=== PATIENT | male | born 1970 | race Caucasian/White ===

== ENCOUNTER 2021-10-21 17:49 | Emergency (ER) | payer OTHER ==
[~2021-10-21] VITALS: Ht 180.3 cm; Wt 120.7 kg
[2021-10-21 18:44] LABS: BASO # 0.1 x10^3/uL (0.0-0.2); BASO % 1 % (0-3); EOS # 0.3 x10^3/uL (0.0-0.7); EOS % 3 % (0-3); HEMATOCRIT 44.9 % (39.0-53.0); LYMPH # 3.4 x10^3/uL (1.0-4.8); LYMPH % 30 % (24-48); MEAN CORPUSCULAR HEMOGLOBIN 30 pg (25-35); MEAN CORPUSCULAR HGB CONC 33 g/dL (31-37); MEAN CORPUSCULAR VOLUME 88 fL (79-100); MONO % 9 % (0-9); NEUT # 6.6 x10^3/uL (1.8-7.7); NEUT % 58 % (31-73); PLATELET COUNT 345 x10^3/uL (140-400); RED BLOOD COUNT 5.09 x10^6/uL (4.30-5.70); RED CELL DISTRIBUTION WIDTH 12.6 % (11.5-14.5); WHITE BLOOD COUNT 11.4 x10^3/uL (4.0-11.0)
[2021-10-21 18:52] LABS: CALCIUM 8.7 mg/dL (8.5-10.1); CREATININE 1.1 mg/dL (0.7-1.3); POTASSIUM 4.4 mmol/L (3.5-5.1)
[2021-10-21] MEDS: ONDANSETRON PF 4 MG/2 ML VIAL. IVP ONE (18:52)
[2021-10-21] MEDS: IV NORMAL SALINE 1000ML BAG 1,000 ML IV ONE (18:53)
[2021-10-21 18:54] VITALS: BP 123/84
--- NOTE | 2021-10-21 18:58 | PHYS DOC ---
Past Medical History Past Medical History: Diabetes-Type II Additional Past Surgical Histo: Left ankle repair Smoking Status: Never Smoker Alcohol Use: None Drug Use: None General Adult EDM: Chief Complaint: CHEST PAIN HPI: HPI: 51-year-old male presents with a CC of chest pain x 1 day. Pt states that the pain is localized around his left chest and states that it "feels like a pulled muscle" nothing makes it better, movement makes it worse, denies associated symptoms, denies radiation. pain /. Review of Systems: Review of Systems: Constitutional: Denies fever or chills Eyes: Denies redness or eye pain HENT: Denies nasal congestion or sore throat Respiratory: Denies cough or shortness of breath Cardiovascular: patient complains of chest pain but denies palpitations. GI: reports nausea, denies vomiting, constipation or diarrhea : Denies dysuria or hematuria Musculoskeletal: Denies back pain or joint pain Integument: Denies rash or skin lesions Neurologic: Reports blurred vision but denies headache, focal weakness or senso ry changes Complete systems were reviewed and found to be within normal limits, except as documented in this note. Heart Score: C/O Chest Pain: Yes HEART Score for Chest Pain: HEART Score for Chest Pain Response (Comments) Value History Slighlty/Non-Suspicious 0 ECG Normal 0 Age >45 - < 65 1 Risk Factors 1 or 2 Risk Factors 1 Troponin < Normal Limit 0 Total 2 Risk Factors: Risk Factors: DM, Current or recent (<one month) smoker, HTN, HLP, family history of CAD, obesity. Risk Scores: Score 0 - 3: 2.5% MACE over next 6 weeks - Discharge Home Score 4 - 6: 20.3% MACE over next 6 weeks - Admit for Clinical Observation Score 7 - 10: 72.7% MACE over next 6 weeks - Early Invasive Strategies Family History: Family History: No pertinent family history Current Medications: Current Medications Medications (Trade) Dose Ordered Sig/Bianka Start Time Stop Time Status Last Admin Dose Admin Ondansetron HCl (Zofran) 4 mg 1X ONCE 10/21/21 18:30 10/21/21 18:31 DC Sodium Chloride 1,000 ml @ 1,000 mls/hr 1X ONCE 10/21/21 18:30 10/21/21 19:29 Allergies: Allergies: Allergies Coded Allergies Type Severity Reaction Last Updated Verified Penicillins Allergy Unknown 10/21/21 Yes Physical Exam: PE: Constitutional: Well developed, well nourished, no acute distress, non-toxic appearance HENT: Normocephalic, atraumatic Eyes: PERRL, EOMI, conjunctiva normal, no discharge Neck: Normal range of motion, no tenderness, supple Cardiovascular: HRRR no murmurs, no palpitations Lungs & Thorax: No respiratory distress, equal chest rise and fall, lungs CTAB Abdomen: Soft, no tenderness Skin: Warm, dry, no erythema, no rash Back: No tenderness, no CVA tenderness Extremities: No tenderness, ROM intact, no edema Neurologic: Alert and oriented X 3, normal motor function, normal sensory function, no focal deficits noted Psychologic: Affect normal, judgment normal EKG: EKG: @1757 NSR at 89bpm, normal rate, NO ST elevation, QRS 88ms, QT/QTc 378/461ms Radiology/Procedures: Radiology/Procedures: [] Course & Med Decision Making: Course & Med Decision Making Pertinent Labs and Imaging studies reviewed. (See chart for details) Patient presents with chest pain, dizziness and nausea after admitting to not taking his metformin x 6 months and switching to an herbal supplement. EKG showed NSR with no signs of ACS, troponin (-). Hyperglycemia and nausea were noted and addressed. Patients symptoms are likely due to his uncontrolled T2DM. Patient stable for discharge with outpatient follow-up with PCP. Discussed findings and plan with patient, who acknowledges understanding and agreement. Gisselle Disclaimer: Gisselel Disclaimer: This electronic medical record was generated, in whole or in part, using a voice recognition dictation system. Departure Departure Impression: Primary Impression: Hyperglycemia Disposition: 01 HOME / SELF CARE / HOMELESS Condition: STABLE Patient Instructions: Diet - 2000 Calorie Diabetic, Hyperglycemia, [id number] Additional Instructions: Increase fluid hydration. Please follow-up with your PCP regarding management of your diabetes. JUSTICE PRABHAKAR DO Oct 21, 2021 18:58
[2021-10-21 18:59] LABS: ALBUMIN 3.8 g/dL (3.4-5.0); MAGNESIUM 2.5 mg/dL (1.8-2.4); TOTAL BILIRUBIN 0.4 mg/dL (0.2-1.0); TOTAL PROTEIN 7.8 g/dL (6.4-8.2)
--- NOTE | 2021-10-21 19:13 | EKG ---
[facility] [address] [place] [address] Test Date: 2021-10-21 Test Time: 17:57:51 Pat Name: DION REARDON Department: Room: Gender: M Forepart Rasper: : 1970 Requested By: JUSTICE PRABHAKAR Order Number: [id number] Reading MD: Harmeet Horner Measurements Intervals [place] Rate: 89 P: 42 MS: 144 QRS: 20 QRSD: 88 T: 31 QT: 378 QTc: 461 Interpretive Statements SINUS RHYTHM Electronically Signed On 10-25-2021 16:49:21 [employer] MACHINE OPERATOR by Harmeet Horner
[2021-10-21 19:45] LABS: BILIRUBIN,URINE NEGATIVE (NEG); CLARITY,URINE CLEAR; COLOR,URINE YELLOW; NITRITE,URINE NEGATIVE (NEG); PROTEIN,URINE NEGATIVE (NEG-TRACE); UROBILINOGEN,URINE 0.2 mg/dL (0.2 mg/dL)
[2021-10-21 19:54] LABS: BACTERIA,URINE 0 /HPF (0-FEW); RBC,URINE 0 /HPF (0-2); WBC,URINE RARE /HPF (0-4)
[2021-10-21] MEDS: INSULIN LISPRO 300 UNITS/3 ML VIAL. SQ ONE (20:17)
== END 2021-10-21 20:24 | disposition home or self-care (01) ==
LOC: ER 17:49
DX: E11.65 Type 2 diabetes mellitus with hyperglycemia (principal); R07.89 Other chest pain; Z88.0 Allergy status to penicillin
CPT/HCPCS: 36415; 80053; 81001; 82553; 82962; 83690; 83735; 84484; 85025; 93005; 96361; 96372; 96374; 99284; J1815; J2405; J7030